=== PATIENT | male | born 1970 | race Caucasian/White ===

== ENCOUNTER 2020-07-23 12:06 | Emergency (ER) | payer OTHER, SELFPAY ==
[~2020-07-23] VITALS: Ht 167.6 cm; Wt 68.0 kg
--- NOTE | 2020-07-23 12:55 | NUR ---
[employer] NOTE: PT TO ROOM 15 FROM LOBBY.
--- NOTE | 2020-07-23 13:15 | NUR ---
PT CBC REMAINS PENDING. PT ON CARDIAC AND VITALS MONITORS. PT NOT IN DESTRESS AT THIS TIME.
[2020-07-23] MEDS ORDERED: ASPIRIN 81 MG TABLET CHEW ONE (13:18)
[2020-07-23] MEDS ORDERED: ASPIRIN 81 MG TABLET CHEW PO ONE (13:30)
[2020-07-23 13:39] LABS: BASOPHILS % (AUTO) 1 % (0-1); EOSINOPHILS % (AUTO) 1 % (1-7); LYMPHOCYTES % (AUTO) 36 % (22-44); MEAN CORPUSCULAR HEMOGLOBIN 29.1 pg (27.5-34.5); MEAN CORPUSCULAR HGB CONC 33.4 g/dL (33.2-36.2); MEAN PLATELET VOLUME 8.8 fL (7.4-10.4); MONOCYTES % (AUTO) 6 % (2-9); NEUTROPHILS % (AUTO) 56 % (42-75); PLATELET COUNT 257 x10^3/uL (130-400); RED BLOOD COUNT 5.43 x10^6/uL (4.38-5.82); RED CELL DISTRIBUTION WIDTH 14.1 % (9.4-14.8)
[2020-07-23 13:46] LABS: CHLORIDE 109 mmol/L (98-107)
[2020-07-23 13:57] LABS: ALANINE AMINOTRANSFERASE 19 U/L (12-78); ALBUMIN 4.1 g/dL (3.4-5.0); ALKALINE PHOSPHATASE 63 U/L (45-117); ANION GAP 7 mmol/L (5-15); BILIRUBIN,TOTAL 0.3 mg/dL (0.2-1.0); CALCIUM 9.4 mg/dL (8.5-10.1); CREATININE 1.02 mg/dL (0.7-1.3); TOTAL PROTEIN 7.7 g/dL (6.4-8.2); TROPONIN I < 0.015 ng/mL (0.000-0.045)
[2020-07-23 14:00] VITALS: BP 135/75
[2020-07-23 14:20] LABS: MD SCAN
[2020-07-23] MEDS ORDERED: MAALOX/HYOSCYAMINE/LIDOCAINE 45 ML BTL PO ONE (15:00)
[2020-07-23] MEDS ORDERED: MAALOX/HYOSCYAMINE/LIDOCAINE 45 ML BTL ONE (15:08)
--- NOTE | 2020-07-23 15:16 | NUR ---
PT UP FOR RECHECK. ALL RESULTS ARE BACK. PT MEDICATED PER EMAR.
--- NOTE | 2020-07-23 15:48 | NUR ---
Patient given discharge instructions and they have confirmed that they understand the instructions. Patient ambulatory with steady gait.
== END 2020-07-23 15:49 | disposition home or self-care (01) ==
LOC: ED 14:24
DX: R07.1 Chest pain on breathing (principal); R10.13 Epigastric pain; R06.00 Dyspnea, unspecified; R07.89 Other chest pain; R06.02 Shortness of breath; R42 Dizziness and giddiness
CPT/HCPCS: 36415; 71045; 80053; 83690; 84484; 85025; 93005; 99285